=== PATIENT | male | born 1985 | race Caucasian/White ===

== ENCOUNTER 2016-12-28 22:16 | Emergency (ER) | payer OTHER | END 2016-12-29 01:50 | disposition home or self-care (01) | LOC: ER1 22:16 | DX: L73.9 Follicular disorder, unspecified (principal); R59.0 Localized enlarged lymph nodes; Z88.1 Allergy status to other antibiotic agents; Z91.048 Other nonmedicinal substance allergy status | CPT/HCPCS: 99282; Q0162 ==